=== PATIENT | female | born 1935 | race Caucasian/White ===

== ENCOUNTER 2017-06-11 21:25 | Emergency (ER) | payer MEDICARE ==
[2017-06-11 22:36] VITALS: BP 137/87
--- NOTE | 2017-06-11 23:06 | EDM.PDOC ---
ED HPI GENERAL MEDICAL PROBLEM - General Chief Complaint: Cardiovascular Problem Stated Complaint: HIGH BP / CHEST DISCOMFORT Time Seen by Provider: 06/11/17 22:57 Source of Information: Reports: Patient History Limitations: Reports: No Limitations - History of Present Illness INITIAL COMMENTS - FREE TEXT/NARRATIVE: This patient comes in complaining that her blood pressure was very high at home. She also complained of some vague minor chest discomfort associated with that. She says it's all gone now. She said that she was taken off of the medication recently and she thinks it's nifedipine. She's taking metoprolol she is certain what size but it's 1-1/2 tablets twice daily. She feels fine and she wants to go home Lower legs Pain Score (Numeric/FACES): 5 - Related Data Allergies Allergy/AdvReac Type Severity Reaction Status Date / Time amlodipine besylate Allergy Bleeding Verified 06/11/17 22:13 [From Norvasc] erythromycin lactobionate Allergy Abdominal Verified 06/11/17 22:13 [From Erythrocin] Cramps metronidazole [From Flagyl] Allergy Swelling Verified 06/11/17 22:13 oxycodone Allergy Shaking Verified 06/11/17 22:13 prednisone Allergy Hypertensio Verified 06/11/17 22:13 n Home Meds: Home Meds Aspirin [[place] Aspirin] 81 mg PO DAILY 09/01/13 [History] Pravastatin [Pravachol] 40 mg PO BEDTIME 09/01/13 [History] Valsartan/Hydrochlorothiazide [Valsartan-Hctz 320-12.5 mg Tab] 1 tab PO DAILY [History] Nitroglycerin [Nitrostat] 0.4 mg SL ASDIRECTED 01/27/15 [History] NIFEdipine [Nifedipine ER] 60 mg PO DAILY 06/11/17 [History] Warfarin Sodium 5 mg PO ASDIRECTED 06/11/17 [History] Past Medical History Other HEENT History: wire through left eye in 2001 Cardiovascular History: Reports: CAD, Hypertension, [place], Stents Gastrointestinal History: Reports: GERD 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: , Other (See Below) Other OB/BYN History: tubal Endocrine/Metabolic History: Reports: Obesity/BMI 30+ Oncologic (Cancer) History: Reports: Breast - Infectious Disease History Infectious Disease History: Reports: Chicken Pox, Measles - Past Surgical History Other HEENT Surgeries/Procedures: multiple surgeries on left eye GI Surgical History: Reports: Appendectomy Female Surgical History: Reports: Hysterectomy Oncologic Surgical History: Reports: Mastectomy, Other (See Below) Other Oncologic Surgeries/Procedures: Left mastectomy Social & Family History - Tobacco Use Smoking Status *Q: Never Smoker Second Hand Smoke Exposure: No - Caffeine Use Caffeine Use: Reports: None Other Caffeine Use: drinks decaf - Recreational Drug Use Recreational Drug Use: No ED ROS GENERAL - Review of Systems Review Of Systems: ROS reveals no pertinent complaints other than HPI. ED EXAM, GENERAL - Physical Exam Exam: See Below Exam Limited By: No Limitations General Appearance: Alert, WD/WN, No Apparent Distress Eye Exam: Bilateral Eye: Normal Inspection Throat/Mouth: Normal Inspection Respiratory/Chest: Lungs Clear Cardiovascular: Regular Rate, Rhythm GI/Abdominal: Non-Tender Extremities: Normal Inspection Neurological: Alert, Oriented Course - Vital Signs Last Recorded V/S: Last Vital Signs Temp 36.9 C 06/11/17 22:09 Pulse 62 06/11/17 22:35 Resp 16 06/11/17 22:09 BP 137/87 06/11/17 22:35 Pulse Ox 93 L 06/11/17 22:35 - Re-Assessments/Exams Free Text/Narrative Re-Assessment/Exam: 06/12/17 05:20 This patient's blood pressure appears to be reasonably well controlled and she' s feeling quite well. Her complaint of chest discomfort didn't appear to be anything significant. She'll check her blood pressure closely and follow up with her doctor if she has more problems Departure - Departure Time of Disposition: 23:05 Disposition: Home, Self-Care 01 Condition: Fair Clinical Impression: Uncontrolled hypertension Instructions: Hypertension, [id number] Referrals: Oralia Fontenot MD [Primary Care Provider] - Forms: ED Department Discharge Additional Instructions: Continue all your usual medications. Return to the ER at any time if needed otherwise follow-up with your Dr. in 1 or 2 days if you continue to have elevated blood pressures
== END 2017-06-11 23:10 | disposition home or self-care (01) ==
LOC: JP.ED 21:25
DX: I10 Essential (primary) hypertension (principal); I25.10 Atherosclerotic heart disease of native coronary artery without angina pectoris; I25.2 Old myocardial infarction; Z88.8 Allergy status to other drugs, medicaments and biological substances; Z88.1 Allergy status to other antibiotic agents; Z88.5 Allergy status to narcotic agent; Z79.82 Long term (current) use of aspirin; Z79.899 Other long term (current) drug therapy
CPT/HCPCS: 99285

== ENCOUNTER 2020-04-22 17:10 | Emergency (ER) | payer MEDICARE ==
[2020-04-22 17:59] VITALS: BP 168/97; PULSE 64
--- NOTE | 2020-04-22 18:52 | EDM.PDOC ---
ED HPI GENERAL MEDICAL PROBLEM - General Chief Complaint: General Stated Complaint: HIGH BP Time Seen by Provider: 04/22/20 18:38 Source of Information: Reports: Patient History Limitations: Reports: No Limitations - History of Present Illness INITIAL COMMENTS - FREE TEXT/NARRATIVE: 84-year-old female who lives alone is being treated for a UTI with Bactrim and has taken 4 doses. Since she started the Bactrim she has had a generalized ache in the back of her left arm but she has had a mastectomy on the left side and gets occasional soreness and lymphedema. Today she took her blood pressure his systolic was over 180 which is high for her and it scared her so she called her neighbor to bring her in. On arrival her blood pressure systolic was 167, and within 15 minutes it was 145. She has no other symptoms such as shortness of breath, chest pain, palpitations, headache, and her urine symptoms have resolved. She does have some mild to moderate nausea and mild stomach upset from the Bactrim. Onset: Unknown/Unsure Associated Symptoms: Reports: Other (Mild nausea and general malaise from the Bactrim). Denies: Confusion, Chest Pain, Loss of Appetite - Related Data Allergies Allergy/AdvReac Type Severity Reaction Status Date / Time amlodipine besylate Allergy Bleeding Verified 06/11/17 22:13 [From Norvasc] erythromycin lactobionate Allergy Abdominal Verified 06/11/17 22:13 [From Erythrocin] Cramps metronidazole [From Flagyl] Allergy Swelling Verified 06/11/17 22:13 oxycodone Allergy Shaking Verified 06/11/17 22:13 prednisone Allergy Hypertensio Verified 06/11/17 22:13 n Home Meds: Home Meds Aspirin [[place] Aspirin] 81 mg PO DAILY 09/01/13 [History] Pravastatin [Pravachol] 40 mg PO BEDTIME 09/01/13 [History] Valsartan/Hydrochlorothiazide [Valsartan-Hctz 320-12.5 mg Tab] 1 tab PO DAILY 01/25/15 [History] Nitroglycerin [Nitrostat] 0.4 mg SL ASDIRECTED 01/27/15 [History] NIFEdipine [Nifedipine ER] 60 mg PO DAILY 06/11/17 [History] Warfarin Sodium 5 mg PO ASDIRECTED 06/11/17 [History] Glimepiride 2 mg PO DAILY 04/22/20 [History] Losartan Potassium 100 mg PO BEDTIME 04/22/20 [History] Spironolactone [Aldactone] 25 mg PO DAILY 04/22/20 [History] Sulfamethoxazole/Trimethoprim [Sulfamethoxazole-Tmp Ss Tablet] 800 mg PO BID 04/22/20 [History] carvediloL [Carvedilol] 6.25 mg PO BID 04/22/20 [History] Past Medical History Other HEENT History: wire through left eye in 2001 Cardiovascular History: Reports: CAD, Hypertension, [place], Stents Gastrointestinal History: Reports: GERD 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: , Other (See Below) Other CARD CLOTHIER History: tubal Musculoskeletal History: Reports: Other (See Below) Other Musculoskeletal History: L above elbow pain Neurological History: Reports: CVA, TIA Endocrine/Metabolic History: Reports: Obesity/BMI 30+ Oncologic (Cancer) History: Reports: Breast - Infectious Disease History Infectious Disease History: Reports: Chicken Pox, Measles - Past Surgical History Other HEENT Surgeries/Procedures: multiple surgeries on left eye GI Surgical History: Reports: Appendectomy Female Surgical History: Reports: Hysterectomy Oncologic Surgical History: Reports: Mastectomy, Other (See Below) Other Oncologic Surgeries/Procedures: Left mastectomy Social & Family History - Tobacco Use Tobacco Use Status *Q: Never Tobacco User - Caffeine Use Caffeine Use: Reports: None Other Caffeine Use: drinks decaf - Recreational Drug Use Recreational Drug Use: No ED ROS GENERAL - Review of Systems Review Of Systems: See Below Constitutional: Reports: Malaise. Denies: Fever, Chills HEENT: Reports: No Symptoms Respiratory: Reports: No Symptoms Cardiovascular: Denies: Chest Pain, Dyspnea on Exertion, Palpitations GI/Abdominal: Reports: Nausea. Denies: Abdominal Pain, Vomiting : Reports: Other (Being treated for UTI, symptoms are now resolved) Neurological: Reports: No Symptoms Psychiatric: Reports: No Symptoms ED EXAM, GENERAL - Physical Exam Exam: See Below Exam Limited By: No Limitations General Appearance: Alert, No Apparent Distress Head: Atraumatic Respiratory/Chest: No Respiratory Distress, Lungs Clear Cardiovascular: Regular Rate, Rhythm, No Murmur. No: Extra Beats GI/Abdominal: Normal Bowel Sounds, Soft, Non-Tender Extremities: Other (The back of her left arm is where she describes her discomfort, I cannot reproduce the pain with palpation or movement of the arm) Neurological: Alert, Oriented Course - Vital Signs Last Recorded V/S: Last Vital Signs Temp 97.2 F 04/22/20 17:58 Pulse 64 04/22/20 17:58 Resp 16 04/22/20 17:58 BP 168/97 H 04/22/20 17:58 Pulse Ox 96 04/22/20 17:58 - Re-Assessments/Exams Free Text/Narrative Re-Assessment/Exam: 04/22/20 18:50 Got the UA from the clinic and it is E. coli, sensitivities are not yet available. It is likely sensitive to the sulfa as she is improving. I told her if she takes 1 dose tonight and 1 dose tomorrow morning, she can probably stop the antibiotic. No need to be concerned about the blood pressure as it is normalized now that she is calmed down. She will return if symptoms worsen instead of improve. Other than shortening her antibiotic course for the UTI, no other medication changes are recommended. Departure - Departure Time of Disposition: 18:58 Disposition: Home, Self-Care 01 Clinical Impression: Pain of left arm Hypertension Qualifiers: Hypertension type: essential hypertension Qualified Code(s): I10 - Essential (primary) hypertension - Discharge Information Instructions: Hypertension, Adult, [id number] Referrals: Antonio Andrew MD [Primary Care Provider] - Forms: ED Department Discharge Care Plan Goals: Continue your current medications and take Tylenol 3 or 4 times daily if needed for the next couple of days. Return anytime if worsening or concerns, or consider rechecking in 2 to 3 days if no improving satisfactorily. 1 more dose of Bactrim tonight, and one tomorrow morning should be sufficient to cover your bladder infection. Sepsis Event Note (ED) - Evaluation Sepsis Screening Result: No Definite Risk - Focused Exam Vital Signs: Vital Signs Temp Pulse Resp BP Pulse Ox 04/22/20 17:58 97.2 F 64 16 168/97 H 96
== END 2020-04-22 18:58 | disposition home or self-care (01) ==
LOC: JP.ED 17:10
DX: M79.602 Pain in left arm (principal); I10 Essential (primary) hypertension; I25.2 Old myocardial infarction; I25.10 Atherosclerotic heart disease of native coronary artery without angina pectoris; E66.9 Obesity, unspecified; Z68.33 Body mass index [BMI] 33.0-33.9, adult; Z88.8 Allergy status to other drugs, medicaments and biological substances; Z88.1 Allergy status to other antibiotic agents; Z88.5 Allergy status to narcotic agent; Z79.82 Long term (current) use of aspirin; Z79.01 Long term (current) use of anticoagulants; Z79.84 Long term (current) use of oral hypoglycemic drugs; Z79.899 Other long term (current) drug therapy; Z95.5 Presence of coronary angioplasty implant and graft; Z86.73 Personal history of transient ischemic attack (TIA), and cerebral infarction without residual deficits
CPT/HCPCS: 99282; 99283